=== PATIENT | male | born 1960 | race Caucasian/White ===

== ENCOUNTER → 2020-02-06 | Outpatient (CLI) | payer SELFPAY ==
[2020-02-06 09:35] LABS: HEMATOCRIT 46.6 % (42.0-52.0); MEAN CELL VOLUME 97.5 fl (80.0-94.0); MEAN CORPUSCULAR HGB 31.2 pg (27.0-31.0); RED BLOOD COUNT 4.78 10*6/uL (4.50-5.90); RED CELL DISTRI WIDTH 13.2 % (0-14.5); WHITE BLOOD COUNT 11.3 10*3/uL (4.8-10.8)
[2020-02-06 10:00] LABS: ALBUMIN 3.1 gm/dl (3.1-4.5); BUN 26 mg/dl (7-24); CHLORIDE 109 mmol/L (98-107); CHOLESTEROL 119 mg/dL (<200); SGOT/AST 116 IU/L (3-35); SGPT/ALT 141 U/L (12-78); SODIUM 142 mmol/L (136-145)
[2020-02-06 10:05] LABS: ALKALINE PHOSPHATASE 65 U/L (45-117); CREATININE 1.45 mg/dL (0.70-1.30); HDL CHOLESTEROL 55 mg/dl (40-60); LDL CHOLESTEROL 55 mg/dL (9-159); TOTAL PROTEIN 6.9 gm/dL (6.4-8.2); TRIGLYCERIDES 47 mg/dl (<150); VLDL CHOLESTEROL 9 mg/dL (6-40)
[2020-02-06 11:29] LABS: VITAMIN D, 25-HYDROXY 30.2 ng/mL (30-100)
== END | disposition home or self-care (01) ==
LOC: LAB 09:10
PROVIDERS: ATTEND Family Medicine
DX: Z12.5 Encounter for screening for malignant neoplasm of prostate (principal); I11.0 Hypertensive heart disease with heart failure; I50.9 Heart failure, unspecified; E55.9 Vitamin D deficiency, unspecified; R53.83 Other fatigue

== ENCOUNTER → 2020-02-26 | Outpatient (CLI) | payer SELFPAY ==
[2020-02-26 09:01] LABS: BUN 22 mg/dl (7-24); CHLORIDE 107 mmol/L (98-107); CREATININE 1.27 mg/dL (0.70-1.30); IRON 168 ug/dL (65-175); POTASSIUM 4.5 mmol/L (3.5-5.1); SODIUM 139 mmol/L (136-145); TOTAL IRON BINDING CAPACITY 334 ug/dl (250-450)
[2020-02-27 07:10] LABS: HEPATITIS C VIRUS ANTIBODY 0.2 s/co (0.0-0.9)
[2020-02-27 08:12] LABS: CYTOMEGALOVIRUS AB, IGG <0.60 U/mL (0.00-0.59)
[2020-02-27 09:07] LABS: HEP B CORE AB, IGM Negative (Negative); HEPATITIS B SURFACE AG Positive (Negative)
[2020-02-27 13:09] LABS: PROSTATE SPECIFIC AG FREE 0.73 ng/mL; PROSTATE SPECIFIC AG, SERUM 6.1 ng/mL (0.0-4.0)
[2020-02-28 13:06] LABS: HBV QUANT 54700000 IU/mL (.); HEPATITIS B QNT See Final Results IU/mL (.)
[2020-02-28 16:07] LABS: PARVOVIRUS B19 IGG 2.4 index (0.0-0.8); PARVOVIRUS B19 IGM 0.1 index (0.0-0.8)
[2020-02-28 22:06] LABS: COXSACKIE B-1 AB Negative (Neg:<1:8); COXSACKIE B-2 AB 1:32 (Neg:<1:8); COXSACKIE B-3 AB Negative (Neg:<1:8); COXSACKIE B-4 AB Negative (Neg:<1:8); COXSACKIE B-5 AB 1:32 (Neg:<1:8); COXSACKIE B-6 AB 1:32 (Neg:<1:8)
[2020-03-07 08:08] LABS: HBV LOG10 7.738 (.)
== END | disposition home or self-care (01) ==
LOC: LAB 07:43
PROVIDERS: Nurse Practitioner Adult Health; ATTEND Family Medicine
DX: I42.0 Dilated cardiomyopathy (principal); I50.20 Unspecified systolic (congestive) heart failure; E61.1 Iron deficiency; K75.9 Inflammatory liver disease, unspecified; R97.20 Elevated prostate specific antigen [PSA]

== ENCOUNTER → 2020-03-22 | Outpatient (CLI) | payer SELFPAY | END | disposition home or self-care (01) | LOC: LAB 16:22 | PROVIDERS: ATTEND Nurse Practitioner Adult Health | DX: I42.0 Dilated cardiomyopathy (principal); I50.20 Unspecified systolic (congestive) heart failure ==

== ENCOUNTER → 2020-04-10 | Outpatient (CLI) | payer SELFPAY ==
[2020-04-10 16:39] LABS: BUN 27 mg/dl (7-24); CHLORIDE 107 mmol/L (98-107); CREATININE 1.22 mg/dL (0.70-1.30); POTASSIUM 4.4 mmol/L (3.5-5.1); SODIUM 139 mmol/L (136-145)
== END | disposition home or self-care (01) ==
LOC: LAB 15:47
PROVIDERS: ATTEND Nurse Practitioner Adult Health
DX: I42.0 Dilated cardiomyopathy (principal)

== ENCOUNTER → 2020-05-01 | Outpatient (CLI) | payer SELFPAY | END | disposition home or self-care (01) | LOC: CARD 07:10 | PROVIDERS: ATTEND Internal Medicine Cardiovascular Disease | DX: I42.0 Dilated cardiomyopathy (principal) ==

== ENCOUNTER → 2022-07-28 | Outpatient (CLI) | payer SELFPAY | END | disposition home or self-care (01) | LOC: CARD 00:07 | PROVIDERS: ATTEND Internal Medicine Cardiovascular Disease | DX: I08.0 Rheumatic disorders of both mitral and aortic valves (principal); I42.0 Dilated cardiomyopathy ==